=== PATIENT | male | born 1975 | race Caucasian/White ===

== ENCOUNTER 2020-04-18 16:35 | Outpatient (CLI) | payer BC, SELFPAY ==
--- NOTE | ~2020-04-18 | XR_ITS ---
EXAMINATION: XR chest 2V EXAM DATE: 04/18/2020 17:00 INDICATION: Left chest pain, numbness. Syncope. Shortness of breath. TECHNIQUE: Frontal and lateral projections of the chest obtained and reviewed. Comparison is made to prior examination from 06/20/2010. FINDINGS: Moderate chronic appearing hyperinflation. The lungs are clear. There are no pleural effu sions. The cardiomediastinal silhouette is within normal limits. There is no pneumothorax suspected . The bones and soft tissues are unremarkable. IMPRESSION: 1. No acute cardiopulmonary findings. 2. Hyperinflation. Reviewed, dictated and finalized at location A. UMER AFFAIRS DIRECTOR
[2020-04-18 16:52] LABS: Add Urine Microscopic? NO; Appearance Urine Clear (Clear); Basophils Absolute Auto 0.04 K/mm3 (0.00-0.10); Basophils Percent Auto 0.8 % (0.0-1.0); Bilirubin Urine Negative (Negative); Blood Urine Negative (Negative); Color Urine Yellow (Yellow); Eosinophils Absolute Auto 0.15 K/mm3 (0.02-0.50); Glucose Urine UA Negative (Negative); Hematocrit 26.4 % (40.0-54.0); Hemoglobin 7.4 g/dL (14.0-18.0); Immature Granulocyte Absolute 0.01 K/mm3 (0.00-0.00); Immature Granulocyte Percent A 0.2 % (0.0-0.0); Ketones Urine Negative (Negative); Leukocyte Esterase Ur Negative (Negative); Lymphocytes Absolute Auto 1.91 K/mm3 (1.10-4.50); Lymphocytes Percent Auto 38.5 % (18.0-42.0); Mean Corpuscular Hemoglobin 18.6 pg (27.0-31.0); Mean Corpuscular Volume 66.3 fL (78.0-102.0); Monocytes Absolute Auto 0.44 K/mm3 (0.10-0.90); Monocytes Percent Auto 8.9 % (2.0-11.0); Neutrophils Absolute Auto 2.4 K/mm3 (1.7-7.2); Neutrophils Percent Auto 48.6 % (50.0-70.0); Nitrate Urine Negative (Negative); Platelet Count Result 435 K/mm3 (150-420); Protein Urine Negative (Negative); Red Blood Count 3.98 M/mm3 (4.70-6.10); Red Cell Distribution Width 20.8 % (11.6-14.4); Specific Grav Ur 1.025 (1.010-1.020); Urobilinogen Urine 0.2 mg/dL (0.2-1.0); pH Urine 5.5 (5.0-8.0)
[2020-04-18 17:36] LABS: Alanine Aminotransferase 21 U/L (16-63); Albumin Level 4.4 g/dL (3.4-5.0); Alkaline Phosphatase 37 U/L (46-116); Anion Gap 6 mmol/L (8-16); Aspartate Amino Transferase 17 U/L (15-37); Bilirubin,Total 0.2 mg/dL (0.00-1.00); Blood Urea Nitrogen 19 mg/dL (7-18); Calcium 8.8 mg/dL (8.5-10.1); Carbon Dioxide 30 mmol/L (21-32); Chloride 103 mmol/L (98-108); Estimated Glomerular Filt Rate > 60; Glucose 103 mg/dL (70-99); Osmolality Calculated 290 mOsm/kg (285-295); Potassium 4.2 mmol/L (3.5-5.1); Sodium 139 mmol/L (136-145); Thyroid Stimulating Hormone 1.46 uIU/mL (0.36-3.74); Total Protein 7.2 g/dL (6.4-8.2)
[2020-04-18 17:40] LABS: CRP < 0.2 mg/dL (0.0-0.9)
== END 2020-04-18 16:36 | disposition home or self-care (01) ==
LOC: CHSLAB 16:39
PROVIDERS: PCP Internal Medicine; Visit Provider Internal Medicine
DX: R20.0 Anesthesia of skin (principal); R51.9 Headache, unspecified
CPT/HCPCS: 36415; 71046; 80053; 81003; 83735; 84443; 85025; 86140

== ENCOUNTER 2020-04-19 14:19 | Outpatient (CLI) | payer BC, SELFPAY ==
--- NOTE | ~2020-04-19 | US_ITS ---
EXAMINATION: US carotid duplex BI EXAM DATE: 04/19/2020 14:45 INDICATION: L arm numbness, headache . TECHNIQUE: Grayscale, color and pulsed Doppler images of the cervical carotid arteries were obtained . The degree of vessel stenosis is placed in one of the following categories: normal, <50% stenosis, 50-69% stenosis, >=70% stenosis but less than near-occlusion, near-occlusion, or occlusion. Note that percent stenosis relative to normal distal artery lumen diameter is indirectly measured from velocit y measurements as described by Todd, et al. Radiology 2003; [id number]. There is no prior study fo r comparison. FINDINGS: RIGHT SIDE: Right common carotid artery peak systolic velocity (PSV in cm/s): 116 Right bulb/internal carotid artery peak systolic velocity (PSV in cm/s): 97 Right internal carotid artery end diastolic velocity (EDV in cm/s): 29 Right ICA/CCA peak systolic ratio: 0.8 Right external carotid artery peak systolic velocity (PSV in cm/s): 100 Right vertebral artery antegrade flow: yes There is no focal plaque identified. LEFT SIDE: Left common carotid artery peak systolic velocity (PSV in cm/s): 103 Left bulb/internal carotid artery peak systolic velocity (PSV in cm/s): 82 Left internal carotid artery end diastolic velocity (EDV in cm/s): 29 Left ICA/CCA peak systolic ratio: 0.8 Left external carotid artery peak systolic velocity (PSV in cm/s): 92 Left vertebral artery antegrade flow: yes There is minimal carotid atherosclerosis. Velocity and Doppler waveforms in the common and internal carotid arteries is normal. IMPRESSION: 1. Normal right internal carotid artery. 2. Less than 50 percent stenosis in the left internal carotid artery. Reviewed, dictated and finalized at location A. 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
== END 2020-04-19 14:20 | disposition home or self-care (01) ==
LOC: CHSIMG 14:19
PROVIDERS: PCP Internal Medicine; Visit Provider Internal Medicine
DX: R51.9 Headache, unspecified (principal); R20.0 Anesthesia of skin
CPT/HCPCS: 93880

== ENCOUNTER 2020-04-25 13:51 | Outpatient (CLI) | payer BC, SELFPAY ==
--- NOTE | 2020-04-25 14:20 | ECHO_ITS ---
Patient Info Name: Jai Mckeon Age: 44 years : 1975 Gender: Male Ht: 74 in Wt: 160 lbs BSA: 1.94 m2 HR: 87 bpm BP: 100 / 57 mmHg Heart Rhythm: Sinus Rhythm Technical Quality: Excellent Exam Date: 04/25/2020 2:02 PM Exam Location: [facility] EM[facility] Patient Status: Outpatient Admit Date: 04/25/2020 Staff Ordering Physician: Sg Chappell MD Coldfusion: Ashly Henriquez RDCS Attending Provider: Sg Chappell MD Exam Type: CA echo doppler color flow Study Info Indications R55 - Syncope and collapse Complete two-dimensional, color flow and Doppler transthoracic echocardiogram is performed. Strain analysis performed. History/Risk Factors Hypertension: No Dyslipidemia: No Congenital Heart Disease (CHD): No Peripheral Arterial Disease (PAD): No Myocardial Infarction (IN): No Chronic Lung Disease: No Obesity: No Renal Disease: No Coronary Artery Disease (CAD) No Congestive Heart Failure (CHF): No Cardiomyopathy/LV Systolic Dysfunction: No Diabetes Mellitus: No COPD: No Tobacco Use: Former Cerebrovascular Disease: No Deep Vein Thrombosis (DVT): None Dialysis: None Frailty Scale (CSHA): 1: Very Fit Cardiac Arrest: No Summary 1. Complete two-dimensional, color flow and Doppler transthoracic echocardiogram is performed. 2. Left ventricular chamber dimension is mildly enlarged. 3. Left ventricular systolic function is normal, estimated at 60-65%. 4. The left ventricular diastolic function is normal. 5. E/e' 8 is minimally elevated. 6. Global longitudinal strain is normal at -22.5%. 7. There is mild mitral valve regurgitation. 8. No pulmonary hypertension, estimated pulmonary arterial systolic pressure is 24 mmHg. Left Ventricle E/e' 8 is minimally elevated. Global longitudinal strain is normal at -22.5%. Left ventricular chamber dimension is mildly enlarged. Left ventricular systolic function is normal, estimated at 60-65%. The left ventricular diastolic function is normal. Right Ventricle Right ventricular chamber dimension is normal. Right ventricular systolic function is normal. Left Atria Left atrial chamber dimension is normal. Right Atria Right atrial chamber dimension is normal. Aortic Valve The aortic valve is trileaflet. There is no aortic valve stenosis. There is no aortic valve regurgitation. Pulmonic Valve There is no pulmonic regurgitation. Mitral Valve There is no mitral valve stenosis. There is mild mitral valve regurgitation. Tricuspid Valve There is no tricuspid valve regurgitation. No pulmonary hypertension, estimated pulmonary arterial systolic pressure is 24 mmHg. Pericardium/Pleural There is no pericardial effusion. Inferior Vena Cava Normal inferior vena cava with >50% collapse upon inspiration consistent with normal right atrial pressure, 5 mmHg. Aorta The aortic root size at the sinus of Valsalva is normal. Left Ventricular Outflow Tract Name Value Normal LVOT 2D LVOT Diameter 2.0 cm Mitral Valve Name Value Normal
== END 2020-04-25 13:52 | disposition home or self-care (01) ==
PROVIDERS: PCP Internal Medicine; Visit Provider Internal Medicine
DX: D64.9 Anemia, unspecified (principal); R55 Syncope and collapse
CPT/HCPCS: 93306; 96365; 96366; J1756; J7050

== ENCOUNTER 2020-05-02 15:17 | Outpatient (CLI) | payer BC, SELFPAY ==
[2020-05-02] MEDS: IRON SUCROSE COMPLEX 250 MG in SODIUM CHLORIDE 0.9% IV 250 ML 125 MG IVPB (16:40)
--- NOTE | 2020-05-02 16:44 | PC.NURSE ---
Patient placed in room 202. #22 gauge IV started in left forearm. IV flushed with normal saline. Infusion started.
--- NOTE | 2020-05-02 17:37 | PC.NURSE ---
Patient in recliiner watching TV. No s/s of reaction to medication.IV site intact.
--- NOTE | 2020-05-02 18:35 | PC.NURSE ---
IV infusion complete. Patient tolerated well. IV site removed, tip intact. Dressing applied. Pt. left ambulatory. Next appt for friday05-09-20. Denies any questions at discharge.
== END 2020-05-02 15:18 | disposition home or self-care (01) ==
LOC: CHSTREATRM 15:20
PROVIDERS: PCP Internal Medicine; Visit Provider Internal Medicine
DX: D64.9 Anemia, unspecified (principal)
CPT/HCPCS: 96365; 96366; J1756; J7050

== ENCOUNTER 2020-05-06 07:34 | Outpatient (CLI) | payer BC, SELFPAY ==
--- NOTE | ~2020-05-06 | MR_ITS ---
EXAMINATION: MR brain IAC wo con DATE: 05/06/2020 08:29 INDICATION: Syncope. TECHNIQUE: Magnetic resonance imaging (MRI) of the brain, brainstem, and internal auditory canals was performed without intravenous contrast. Sequences included sagittal and axial T1-weighted FSE, axial diffusion-weighted FS EPI, axial T2*-weighted GRE, axial T2-weighted FLAIR Propeller, and axial T2-w eighted Propeller. Apparent diffusion coefficient (ADC) maps were created. COMPARISON: None. FINDINGS: There is no intracranial hemorrhage, acute infarction, or abnormal intracranial mass lesion . The ventricles are normal in size. The paranasal sinuses are clear. The orbits are normal. The inte rnal auditory canals and inner and middle ears are normal. The mastoid air cells are normal. IMPRESSION: 1. Normal brain. Reviewed, dictated and finalized at location B. ESTATE PHOTOGRAPHER IMPRESSION: 1. Normal brain.
== END 2020-05-06 07:35 | disposition home or self-care (01) ==
LOC: CHSIMG 07:36
PROVIDERS: PCP Internal Medicine; Visit Provider Internal Medicine
DX: R55 Syncope and collapse (principal); R20.2 Paresthesia of skin
CPT/HCPCS: 70551

== ENCOUNTER 2020-05-09 15:22 | Outpatient (CLI) | payer BC, SELFPAY ==
[2020-05-09] MEDS: IRON SUCROSE COMPLEX 250 MG in SODIUM CHLORIDE 0.9% IV 250 ML 125 MG IVPB (16:46)
== END 2020-05-09 15:23 | disposition home or self-care (01) ==
PROVIDERS: PCP Internal Medicine; Visit Provider Internal Medicine
DX: D64.9 Anemia, unspecified (principal)
CPT/HCPCS: 96365; 96366; J1756; J7050

== ENCOUNTER 2020-05-16 15:17 | Outpatient (CLI) | payer BC, SELFPAY ==
[2020-05-16] MEDS: IRON SUCROSE COMPLEX 250 MG in SODIUM CHLORIDE 0.9% IV 250 ML 125 MG IVPB (16:12)
--- NOTE | 2020-05-16 16:18 | PC.NURSE ---
Patient arrived on unit. Alert and oriented x3. IV started in left AC. IV infusion started. No c/o offered.
--- NOTE | 2020-05-16 18:55 | PC.NURSE ---
Patient's IV infused without difficulty. IV d/c'd. Patient instructed on IV site care.
== END 2020-05-16 15:18 | disposition home or self-care (01) ==
LOC: CHSTREATRM 15:18
PROVIDERS: PCP Internal Medicine; Visit Provider Internal Medicine
DX: D64.9 Anemia, unspecified (principal)
CPT/HCPCS: 96365; 96366; J1756; J7050

== ENCOUNTER 2020-05-19 15:56 | Outpatient (CLI) | payer BC, SELFPAY ==
[2020-05-19 16:19] LABS: Hematocrit 36.1 % (40.0-54.0); Hemoglobin 10.5 g/dL (14.0-18.0); Immature Reticulocyte Fraction 8.7 % (2.0-16.52); Reticulocyte Percent 0.88 % (0.50-1.50); Reticulocytes Absolute 0.04 M/mm3 (0.02-0.1)
== END 2020-05-19 15:57 | disposition home or self-care (01) ==
LOC: CHSLAB 15:57
PROVIDERS: PCP Internal Medicine; Visit Provider Internal Medicine
DX: D64.9 Anemia, unspecified (principal)
CPT/HCPCS: 36415; 85014; 85018; 85046

== ENCOUNTER 2020-06-06 15:46 | Outpatient (CLI) | payer BC, SELFPAY ==
[2020-06-06 15:56] LABS: Basophils Absolute Auto 0.06 K/mm3 (0.00-0.10); Eosinophils Absolute Auto 0.27 K/mm3 (0.02-0.50); Eosinophils Percent Auto 4.5 % (1.0-6.0); Hematocrit 37.8 % (40.0-54.0); Hemoglobin 11.4 g/dL (14.0-18.0); Immature Granulocyte Absolute 0.02 K/mm3 (0.00-0.00); Immature Granulocyte Percent A 0.3 % (0.0-0.0); Lymphocytes Absolute Auto 1.91 K/mm3 (1.10-4.50); Lymphocytes Percent Auto 31.7 % (18.0-42.0); Mean Corpuscular HGB Conc 30.2 g/dL (32.0-36.0); Mean Corpuscular Hemoglobin 22.8 pg (27.0-31.0); Mean Corpuscular Volume 75.8 fL (78.0-102.0); Mean Platelet Volume 8.5 fl (8.7-11.0); Monocytes Absolute Auto 0.43 K/mm3 (0.10-0.90); Monocytes Percent Auto 7.1 % (2.0-11.0); Neutrophils Absolute Auto 3.3 K/mm3 (1.7-7.2); Neutrophils Percent Auto 55.4 % (50.0-70.0); Platelet Count Result 347 K/mm3 (150-420); Red Blood Count 4.99 M/mm3 (4.70-6.10); Reticulocyte Hemoglobin Conten 29.7 pg (28.0-35.0); Reticulocyte Percent 1.05 % (0.50-1.50); Reticulocytes Absolute 0.05 M/mm3 (0.02-0.1)
[2020-06-06 16:46] LABS: Ferritin 41 ng/mL (26-388)
[2020-06-09 22:21] LABS: Tissue Transglutaminase IgA Ab 1 U/mL (<4); Tissue Transglutaminase IgG Ab 1 U/mL (<6)
== END 2020-06-06 15:47 | disposition home or self-care (01) ==
LOC: CHSLAB 15:48
PROVIDERS: PCP Internal Medicine; Visit Provider Internal Medicine
DX: D50.9 Iron deficiency anemia, unspecified (principal)
CPT/HCPCS: 36415; 82728; 83516; 85025; 85046; 88321

== ENCOUNTER 2020-07-24 10:38 | Outpatient (CLI) | payer BC, SELFPAY ==
--- NOTE | ~2020-07-24 | XR_ITS ---
XR lumbar spine 2-3V DATE: 07/24/2020 11:00 INDICATION: Back pain TECHNIQUE: AP, lateral, coned lateral lumbosacral views COMPARISON: None FINDINGS: Normal alignment of the lumbar spine. No fracture or bone destruction is evident. The lumba r pedicles are intact. No spondylolisthesis. There is moderately severe degenerative disc disease at L1-2. There is severe degenerative disease at L5-S1. The sacroiliac joints appear normal. IMPRESSION: Moderately severe degenerative disc disease at L1-2 and severe degenerative disc disease at L5-S1 Reviewed, dictated and finalized at location A. LE CLEANER IMPRESSION: Moderately severe degenerative disc disease at L1-2 and severe dege nerative disc disease at L5-S1
[2020-07-24 10:54] LABS: Basophils Absolute Auto 0.06 K/mm3 (0.00-0.10); Eosinophils Absolute Auto 0.23 K/mm3 (0.02-0.50); Eosinophils Percent Auto 3.9 % (1.0-6.0); Hematocrit 37.6 % (40.0-54.0); Immature Granulocyte Absolute 0.01 K/mm3 (0.00-0.00); Immature Granulocyte Percent A 0.2 % (0.0-0.0); Lymphocytes Absolute Auto 1.53 K/mm3 (1.10-4.50); Lymphocytes Percent Auto 25.8 % (18.0-42.0); Mean Corpuscular HGB Conc 31.9 g/dL (32.0-36.0); Mean Corpuscular Hemoglobin 25.1 pg (27.0-31.0); Mean Corpuscular Volume 78.5 fL (78.0-102.0); Mean Platelet Volume 8.2 fl (8.7-11.0); Monocytes Absolute Auto 0.42 K/mm3 (0.10-0.90); Monocytes Percent Auto 7.1 % (2.0-11.0); Neutrophils Absolute Auto 3.7 K/mm3 (1.7-7.2); Platelet Count Result 381 K/mm3 (150-420); Red Blood Count 4.79 M/mm3 (4.70-6.10); Red Cell Distribution Width 22.2 % (11.6-14.4); Reticulocyte Hemoglobin Conten 34.9 pg (28.0-35.0); Reticulocyte Percent 0.84 % (0.50-1.50); Reticulocytes Absolute 0.04 M/mm3 (0.02-0.1); White Blood Count 5.9 K/mm3 (4.8-10.8)
[2020-07-24 11:48] LABS: Ferritin 43 ng/mL (26-388)
== END 2020-07-24 10:39 | disposition home or self-care (01) ==
LOC: CHSLAB 10:41
PROVIDERS: PCP Internal Medicine; Visit Provider Internal Medicine
DX: D50.9 Iron deficiency anemia, unspecified (principal); M54.9 Dorsalgia, unspecified
CPT/HCPCS: 36415; 72100; 82728; 85025; 85046

== ENCOUNTER 2022-12-24 16:34 | Outpatient (CLI) | payer BC, SELFPAY ==
--- NOTE | ~2022-12-24 | XR_ITS ---
XR elbow LT min 3V 12/24/2022 17:05 INDICATION: Left elbow pain for 4 weeks PROCEDURE: 4 views left elbow COMPARISON: No prior studies for comparison. FINDINGS: Fracture, dislocation or subluxation is not identified. The soft tissues appear within norm al limits. No foreign bodies are identified. IMPRESSION: 1: NO ACUTE BONE OR JOINT ABNORMALITY IDENTIFIED. Reviewed, dictated and finalized at location A.
== END 2022-12-24 16:35 | disposition home or self-care (01) ==
PROVIDERS: PCP Internal Medicine; Visit Provider Internal Medicine
DX: M25.522 Pain in left elbow (principal)
CPT/HCPCS: 73080

== ENCOUNTER 2023-01-03 16:28 | Outpatient (RCR) | payer BC, SELFPAY ==
--- NOTE | 2023-01-07 17:53 | PTOPEVAL1 ---
Assessment and note entered by JANET Hopkins PT Evaluation Information Assessment Status Evaluation Diagnosis L elbow pain Onset 12/31/22 Subjective Information Patient reports L elbow pain that has been present for the last year, but has recently flared up. Pain increased with activities such as gripping items and lifting with hand facing downward, noting pain is typically worse in the mornings upon waking. He notes he is tender to the touch around the outside of the elbow. He has received x -rays from his doctor, showing negative results. A few months ago he had a cortisone shot which helped initially, but after awhile the pain came back and was more intense than previously. Patient notes numbness and tingling that occurs occasionally from the L elbow distally to hand. He reports a history of L shoulder impingement. At home he has been treating the pain with stretching , NSAIDs, and wearing a compression brace. 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 Reported Pain Level Pain Score 2: Self Report Assessment PT Clinical Summary Mr. Mckeon is a 47 y/o male who presents to skilled PT to address L elbow pain. He presents with palpable pain in L lateral epicondyle and extensor tendon. Patient demonstrates limitations in L UE strength, reporting pain with resisted elbow extension and wrist extension. Assessment suggests diagnosis of L lateral epicondylitis. 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 Pt would benefit from skilled PT to address pain, strength, and function to return to prior level of function. Supervised by Benjamín Hopkins DPT Plan of Care Interventions Electrical Stimulation,Hot Pack/Cold Pack,Manual Therapy,Neuro Re-education,Patient/Caregiver Educati,Therapeutic Activities,Therapeutic Exercise,Ultrasound,Other Other Interventions dry needling PT Services Indicated Yes Treatment Frequency and 2x/week for 10 visits Duration These treatments will address the objective and functional deficits as defined above. The patient will be advanced safely and appropriately in order for the patient to p
--- NOTE | 2023-01-07 17:54 | OPREHPOC ---
Outpatient Therapy Plan of Care This is a Multidisciplinary Plan of Care that may contain components documented by all disciplines (PT, OT, and ST.) PT Problem 1 PT Problem #1 Knowledge Deficit PT Goal 1 Goal 1. Pt to demonstrate independence with HEP to improve progress made in PT. Target Visit 5 PT Problem 2 PT Problem #2 Pain PT Goal 1 Goal 1. Patient to report no more than 3/10 pain with lifting 30 pounds to improve ability to perform work duties. Target Visit 10 PT Problem 3 PT Problem #3 Impaired Strength PT Goal 1 Goal 1. Patient to improve L shoulder strength to be 5/ 5 overall to imrpove patient's ability to perform yardwork. 2. Patient to improve L elbow and wrist strength to be 5/5 overall to allow patient open a jar. Target Visit 10 PT Problem 4 PT Problem #4 Impaired Functional Mobil PT Goal 1 Goal 1. Patient to report ability to lift tools with L UE to aid in work activities. 2. Patient to improve Quick DASH score to no more than 20% functional decline to improve ability to practice martial arts. Target Visit 10
--- NOTE | 2023-02-05 07:30 | OPREHPOC ---
Outpatient Therapy Plan of Care This is a Multidisciplinary Plan of Care that may contain components documented by all disciplines (PT, OT, and ST.) PT Problem 1 PT Problem #1 Knowledge Deficit PT Goal 1 Goal 1. Pt to demonstrate independence with HEP to improve progress made in PT. Target Visit 5 Progress Met Comment goal met PT Problem 2 PT Problem #2 Pain PT Goal 1 Goal 1. Patient to report no more than 3/10 pain with lifting 30 pounds to improve ability to perform work duties. Target Visit 10 Progress Not Met Comment continue to address PT Problem 3 PT Problem #3 Impaired Strength PT Goal 1 Goal 1. Patient to improve L shoulder strength to be 5/ 5 overall to imrpove patient's ability to perform yardwork. 2. Patient to improve L elbow and wrist strength to be 5/5 overall to allow patient open a jar. Target Visit 10 Progress Partially Met Comment continue to address PT Problem 4 PT Problem #4 Impaired Functional Mobil PT Goal 1 Goal 1. Patient to report ability to lift tools with L UE to aid in work activities. 2. Patient to improve Quick DASH score to no more than 20% functional decline to improve ability to practice martial arts. Target Visit 10 Progress Partially Met Comment continue to address
--- NOTE | 2023-02-05 07:31 | PTOPREEVAL ---
Assessment and note entered by JT File, PT Evaluation Information Assessment Status Re-evaluation Diagnosis L elbow pain Onset 12/31/22 Subjective Information Patient reports that he has less pain at rest in the L elbow than before starting PT. He additionally notes less tenderness along the L elbow. He states that activities with lifting and work duties still irritate the elbow and upper arm /shoulder. Reported Pain Level Pain Score 0: Self Report Assessment PT Clinical Summary Mr. Mckeon has attended 10 sessions of skilled PT making progress towards goals. 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 Patient reports improved pain levels at rest and less tenderness present. however, he notes that pain still reaches 6-7/10 with certain lifting activities he performs at home and work. Patient currently has 43% functional decline as assessed by the Quick DASH, improving from 55% functional decline at the initial assessment. Patient would benefit from continued skilled therapy to address remaining strength deficits and pain with function to allow for him to return to all activities and work duties with less difficultly/discomfort. Plan of Care Interventions Electrical Stimulation,Hot Pack/Cold Pack,Manual Therapy,Neuro Re-education,Patient/Caregiver Educati,Therapeutic Activities,Therapeutic Exercise,Ultrasound,Other Other Interventions dry needling PT Services Indicated Yes Treatment Frequency and continue POC for 2x/week for additional 6 visits Duration These treatments will address the objective and functional deficits as defined above. The patient will be advanced safely and appropriately in order for the patient to progress towards his/her prior level of function. Additional exercises will be introduced and as well as a comprehensive home exercise program upon discharge, if needed, ?to ensure carryover of functional gains achieved in the clinic. This treatment plan has been reviewed and agreement upon by the patient.
--- NOTE | 2023-02-28 17:40 | PTOPDC ---
Assessment and note entered by JT File, PT Evaluation Information Assessment Status Discharge Diagnosis L elbow pain Onset 12/31/22 Subjective Information patient reports he is good today. he reports he is ready to DC, but is curious about progression back to his weight lifting activities. he report she is much better since beginning skilled PT. 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 he has met all goals, except for his quick dash score. he will DC skilled PT today, and return to recreational activities with a slow progression in resistance/ weights for weight lifting. he was informed to reach out if symptoms begin to progress again. Plan of Care PT Services Indicated Yes
== END 2023-02-28 14:27 | disposition home or self-care (01) ==
LOC: CHSPT 16:28
PROVIDERS: PCP Internal Medicine; Visit Provider Internal Medicine
DX: M25.522 Pain in left elbow (principal)
CPT/HCPCS: 20560; 97032; 97035; 97110; 97140; 97150; 97161

== ENCOUNTER 2023-04-01 10:18 | Outpatient (CLI) | payer BC, SELFPAY ==
--- NOTE | ~2023-04-01 | XR_ITS ---
XR wrist LT min 3V DATE: 04/01/2023 11:01 INDICATION: Left lateral wrist pain ; No known injury TECHNIQUE: 4 views COMPARISON: None FINDINGS: There is likely osteoarthritic narrowing at the radiocarpal and scapholunate joints. No fracture or dislocation, periosteal reaction or bone destruction, erosive change or chondrocalcino sis is detected. 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
--- NOTE | ~2023-04-01 | XR_ITS ---
XR shoulder LT min 2V DATE: 04/01/2023 11:01 INDICATION: Generalized left shoulder pain, limited range of motion. No known injury. TECHNIQUE: 4 views COMPARISON: None FINDINGS: There is mild upper thoracic levoscoliosis. No fracture or dislocation, periosteal reaction or bone destruction or abnormal soft tissue calcifica tion of the left shoulder. IMPRESSION: Negative left shoulder Upper thoracic levoscoliosis Reviewed, dictated and finalized at location L.
--- NOTE | ~2023-04-01 | XR_ITS ---
XR_CERV2-3V_CR DATE: 04/01/2023 11:01 INDICATION: Neck pain radiating down left arm. No known injury. TECHNIQUE: AP, open-mouth and lateral views COMPARISON: None FINDINGS: There is straightening of the cervical spine which may be due to muscle spasm. C1 and C2 are normally aligned and the odontoid process is intact. No fracture or dislocation or lock ed facet or prevertebral soft tissue swelling is detected. There is mild anterior spurring at C4-5 and slight anterior subluxation. Moderate loss of disc space height and anterior and posterior spurring at C6-7. Uncovertebral joint spurring at C5-6 and C6-7. IMPRESSION: Straightening of the cervical spine which may be due to muscle spasm Minimal anterolisthesis and mild degenerative disc disease at C4-5 Moderate degenerative disc disease at C6-7 Reviewed, dictated and finalized at Location A. Reviewed, dictated and finalized at location L. IMPRESSION: Straightening of the cervical spine which may be due to muscle spas m Minimal anterolisthesis and mild degenerative disc disease at C4-5 Moderate degenerative disc disease at C6-7
== END 2023-04-01 10:19 | disposition home or self-care (01) ==
LOC: CHSIMG 10:23
PROVIDERS: PCP Internal Medicine; Visit Provider Internal Medicine
DX: M54.16 Radiculopathy, lumbar region (principal); M25.512 Pain in left shoulder; M25.532 Pain in left wrist; M19.032 Primary osteoarthritis, left wrist; M41.84 Other forms of scoliosis, thoracic region; M53.82 Other specified dorsopathies, cervical region; M50.321 Other cervical disc degeneration at C4-C5 level; M50.323 Other cervical disc degeneration at C6-C7 level
CPT/HCPCS: 72040; 73030; 73110

== ENCOUNTER 2023-05-16 13:11 | Outpatient (CLI) | payer BC, SELFPAY ==
--- NOTE | ~2023-05-16 | XR_ITS ---
Left wrist Technique: PA, oblique, lateral, and ulnar deviation views were obtained. Clinical History: Pain Findings: No acute fracture or dislocation is seen. Osseous alignment is anatomic. Joint spaces are p reserved. Soft tissues are unremarkable. Impression: Unremarkable left wrist radiographs. Reviewed, dictated and finalized at location . CHECKER Impression: Unremarkable left wrist radiographs.
[2023-05-16 15:02] LABS: Strep Group A RT-PCR NOT DETECTED (Negative)
[2023-05-16 16:21] LABS: Influenza A QL RT-PCR Negative (Negative); Influenza B QL RT-PCR Negative (Negative); RSV RNA, RT-PCR Positive (Negative); SARS-CoV-2 RNA PCR Negative (Negative)
== END 2023-05-16 13:12 | disposition home or self-care (01) ==
PROVIDERS: Nurse Practitioner Family; PCP Family Medicine; Visit Provider Family Medicine
DX: J06.9 Acute upper respiratory infection, unspecified (principal); S69.80XA Other specified injuries of unspecified wrist, hand and finger(s), initial encounter
CPT/HCPCS: 73110; 87635; 87637; 87651

== ENCOUNTER 2023-05-31 09:44 | Outpatient (CLI) | payer BC, SELFPAY ==
--- NOTE | ~2023-05-31 | MR_ITS ---
EXAMINATION: MR shoulder LT wo con DATE: 05/31/2023 10:19 INDICATION: Left shoulder pain. TECHNIQUE: Magnetic resonance imaging (MRI) of the left shoulder was performed without intravenous co ntrast. Sequences included axial PD-weighted FS FSE, coronal oblique PD-weighted FS FSE and T2-weight ed FS FSE, and sagittal oblique T2-weighted FS FSE and T1-weighted FSE. COMPARISON: Left shoulder radiographs 04/01/2023 FINDINGS: Coracoacromial arch: The acromion undersurface is curved in morphology (type II). The acromioclavicular joint is normal. T here is mild subacromial/subdeltoid bursitis. Rotator cuff: There is mild supraspinatus and infraspinatus tendinopathy. Teres minor tendon is normal. Subscapular is tendon is normal. Biceps tendon and glenoid labrum: Biceps tendon is in bicipital groove. Intra-articular biceps tendon is normal. The glenoid labrum is normal. Fluid: There is no glenohumeral joint effusion. Bones/cartilage: Glenoid cartilage is normal. There is a subchondral cyst of superior glenoid. Humeral head cartilage is normal. IMPRESSION: 1. Mild rotator cuff tendinopathy. No tear. 2. Mild subacromial/subdeltoid bursitis. Reviewed, dictated and finalized at location A. 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
== END 2023-05-31 09:45 | disposition home or self-care (01) ==
LOC: CHSIMG 09:45
PROVIDERS: PCP Family Medicine; Visit Provider Family Medicine
DX: M75.52 Bursitis of left shoulder (principal); M25.512 Pain in left shoulder; M77.8 Other enthesopathies, not elsewhere classified
CPT/HCPCS: 99199; 73221

== ENCOUNTER 2023-06-14 11:36 | Outpatient (CLI) | payer BC, SELFPAY ==
--- NOTE | ~2023-06-14 | MR_ITS ---
MRI of the left wrist Technique: Coronal T1 weighted and proton density fat sat images, and axial and sagittal proton-densi ty and proton-density fat-sat images were acquired. Clinical History: Lateral wrist pain Findings: Scapholunate ligament is intact, with no widening of the scapholunate interval. Lunotriquet ral ligament appears intact. TFCC appears grossly intact. There is probable mild degenerative change of the radiocarpal articulations and ulnar lunate articula tion. No joint effusion evident. There is marrow edema/cystic change in the trapezoid, possibly on a degenerative basis. Flexor tendons in the carpal tunnel are unremarkable. Extensor tendons are intact. Visualized muscula ture unremarkable. No soft tissue mass or fluid collection evident. IMPRESSION: Mild degenerative changes of the radiocarpal and ulna lunate articulations. Probable cystic change/marrow edema in the trapezoid, likely on a degenerative basis. Reviewed, dictated and finalized at [facility]. CTOR OF ALUMNI RELATIONS
== END 2023-06-14 11:37 | disposition home or self-care (01) ==
PROVIDERS: PCP Family Medicine; Visit Provider Family Medicine
DX: S69.82XA Other specified injuries of left wrist, hand and finger(s), initial encounter (principal)
CPT/HCPCS: 73221

== ENCOUNTER 2023-10-23 07:16 | Emergency (ER) | payer BC, SELFPAY ==
--- NOTE | ~2023-10-23 | CT_ITS ---
CT of the Abdomen and Pelvis: Indication: Abdominal pain Technique: 2.5 mm axial scans were obtained through the abdomen and pelvis following intravenous adm inistration of 100 cc of Omnipaque 350. Dose reduction technique was used on this scan by utilizing a utomated exposure control and iterative reconstruction technique. The dose-length product (DLP) was 3 55.08 mGy-cm. Findings: Scans through the lung bases are unremarkable. The liver, spleen, pancreas, gallbladder, adrenals and right kidney are within normal limits. 4 mm di stal left ureteral stone present, with mild left hydroureteronephrosis and mildly delayed left nephro gram. No evidence of aortic aneurysm. No lymphadenopathy. No bowel obstruction or bowel wall thickening. There is no evidence to suggest acute appendicitis. Images through the pelvis were performed. Urinary bladder unremarkable. No pelvic mass evident. No as cites. Impression: 4 mm distal left ureteral stone, with mild left hydroureteronephrosis, and mildly delayed left nephro gram. Reviewed, dictated and finalized at [facility]. Impression: 4 mm distal left ureteral stone, with mild left hydroureteronephrosis, and mild ly delayed left nephrogram.
[2023-10-23 07:18] VITALS: BP 114/82; PULSE 97; RESP 16; TEMP 36.9; O2SAT 99
[2023-10-23 07:28] LABS: Appearance Urine Clear (Clear); Bilirubin Urine Negative (Negative); Blood Urine Negative (Negative); Color Urine Light Yellow (Yellow); Glucose Urine UA Negative (Negative); Ketones Urine Trace (Negative); Leukocyte Esterase Ur Negative LEU/UL (Negative); Nitrate Urine Negative (Negative); Protein Urine Negative (Negative); Urobilinogen Urine 0.2 mg/dL (0.2-1.0)
[2023-10-23 07:30] LABS: Add Urine Microscopic? YES; RBC Urine None seen /hpf (0-2); WBC Urine None seen /hpf (0-3)
[2023-10-23 07:31] LABS: Bacteria Urine Rare /hpf
[2023-10-23 07:42] LABS: Basophils Absolute Auto 0.03 K/mm3 (0.00-0.10); Basophils Percent Auto 0.3 % (0.0-1.0); Eosinophils Absolute Auto 0.09 K/mm3 (0.02-0.50); Eosinophils Percent Auto 0.9 % (1.0-6.0); Hematocrit 41.1 % (40.0-54.0); Hemoglobin 13.8 g/dL (14.0-18.0); Immature Granulocyte Absolute 0.04 K/mm3 (0.00-0.00); Immature Granulocyte Percent A 0.4 % (0.0-0.0); Lymphocytes Absolute Auto 1.08 K/mm3 (1.10-4.50); Lymphocytes Percent Auto 11.3 % (18.0-42.0); Mean Corpuscular HGB Conc 33.6 g/dL (32-36); Mean Corpuscular Hemoglobin 29.4 pg (27.0-31.0); Mean Corpuscular Volume 87.6 fL (78.0-102.0); Mean Platelet Volume 8.4 fl (8.7-11.0); Monocytes Absolute Auto 0.82 K/mm3 (0.10-0.90); Monocytes Percent Auto 8.6 % (2.0-11.0); Neutrophils Absolute Auto 7.46 K/mm3 (1.70-7.20); Neutrophils Percent Auto 78.5 % (50.0-70.0); Platelet Count Result 239 K/mm3 (150-420); Red Blood Count 4.69 M/mm3 (4.70-6.10); Red Cell Distribution Width 12.8 % (11.6-14.4); White Blood Count 9.5 K/mm3 (4.8-10.8)
[2023-10-23] MEDS: KETOROLAC 30 MG/ML VIAL (*BKC) IV PUSH (07:46)
[2023-10-23] MEDS: ONDANSETRON INJ 4 MG/2 ML VIAL IV PUSH (07:46)
[2023-10-23] MEDS: SODIUM CHLORIDE 0.9% IV 1,000 ML 999 ML IV CONT (07:46)
[2023-10-23 07:59] LABS: Alanine Aminotransferase 26 U/L (16-63); Albumin Level 3.7 g/dL (3.4-5.0); Alkaline Phosphatase 38 U/L (46-116); Anion Gap 7 mmol/L (4-12); Aspartate Amino Transferase 27 U/L (15-37); Bilirubin,Total 0.7 mg/dL (0.00-1.00); Blood Urea Nitrogen 19 mg/dL (7-18); Calcium 8.3 mg/dL (8.5-10.1); Carbon Dioxide 31 mmol/L (21-32); Chloride 95 mmol/L (98-108); Estimated CRCL calculation 45 ml/min; Estimated Glomerular Filt Rate 35; Glucose 116 mg/dL (70-99); Osmolality Calculated 279 mOsm/kg (285-295); Potassium 3.7 mmol/L (3.5-5.1); Sodium 133 mmol/L (136-145); Total Protein 6.9 g/dL (6.4-8.2)
[2023-10-23 08:02] LABS: Lactic Acid Reflex 0.9 mmol/L (0.4-2.0)
[2023-10-23 08:17] LABS: Lipase 28 U/L (16-77)
[2023-10-23 08:25] LABS: INR 0.9; Partial Thromboplastin Time 28.5 Sec (23.9-30.70); Prothrombin Time 10.3 Seconds (9.50-12.1)
[2023-10-23 09:20] VITALS: BP 129/80; PULSE 78; RESP 16; TEMP 36.8; O2SAT 100
--- NOTE | 2023-10-23 09:20 | ED.BACK ---
HPI - Back Pain/Injury General Chief Complaint: Urogenital-Male Stated Complaint: abdominal pain Time Seen by Provider: 10/23/23 07:22 Source: patient and family Mode of arrival: ambulatory Limitations: no limitations History of Present Illness HPI Narrative: this is 40-year-old male that presents with some left flank pain radiating into his left groin with no dysuria no hematuria no fever chills. The patient was seen at another hospital ER was diagnosed with a kidney stone but is continuing to have left flank pain. patient had an episode of nausea and vomiting with no chest pain no shortness of breath. MD elicited complaint: back pain Pertinent past history: prior back pain Onset (ago): day(s) Timing: constant Severity: moderate Pain scale (0-10): 8 Quality: dull Location: left flank Related Data Home Medications Medication Instructions Recorded Confirmed hydrocodone 5 mg-acetaminophen 325 1 tablet PO Q6-8H 10/23/23 10/23/23 mg tablet ibuprofen 800 mg tablet 800 mg PO Q6-8H 10/23/23 10/23/23 ondansetron 4 mg disintegrating 4 mg PO Q6-8H 10/23/23 10/23/23 tablet tamsulosin 0.4 mg capsule 0.4 mg PO DAILY 10/23/23 10/23/23 Allergies Allergy/AdvReac Type Severity Reaction Status Date / Time Penicillins Allergy Unknown Unknown Verified 10/23/23 07:24 Review of Systems Review of Systems: All systems reviewed & are unremarkable except as noted in HPI and below PMFSH Past Medical History Medical History Non-recurrent bilateral inguinal hernia without obstruction or gangrene Prolapsed internal hemorrhoids, grade 2 Rectal bleeding Family History Family History Mother Family history of mental disorder Depression Family history of alcoholism Sibling Family history of migraine headaches Other Cerebrovascular accident Diabetes mellitus Family history of malignant neoplasm Social History Social History Smoking status: Former smoker Smoking end date: 06/02/13 Alcohol intake: current Exam Const: General: healthy appearing and no acute distress Nutritional Appearance: well nourished Orientation/consciousness: patient oriented x3 Neck: Neck: normal visual inspection and no lymphadenopathy Chest: Chest palpation & inspection: normal inspection of the chest Resp: Effort & Inspection: normal respiratory effort Auscultation: clear to auscultation bilaterally Cardio: Rate: regular rate Rhythm: regular rhythm GI: GI Palp: Yes Soft to palpation and Yes Tenderness to palpation present (GI) Auscultation: normal bowel sounds : General: Yes CVA tenderness Back/Spine/Pelvis: Back: CVA tenderness Skin: General skin exam: normal color Rashes: no rashes Neuro: General: patient oriented x3 Course Course Emergency Course: Patient had a CT scan of the abdomen pelvis performed which showed a 4 mean 4mm stone in the distal ureter with mild hydronephrosis, labs reviewed show that he has acute renal insufficiency patient did receive IV fluids and 30mg IV Toradol pain level did come down to a 5 but is crept up to a 7, and will administer 4mg IV morphine and will discharge patient with follow-up with his primary. Vital Signs Vital signs: Vital Signs Temperature 36.9 C 10/23/23 07:18 Pulse Rate 97 10/23/23 07:18 Respiratory Rate 16 10/23/23 07:18 Blood Pressure 114/82 10/23/23 07:18 Pulse Oximetry 99 10/23/23 07:18 Oxygen Delivery Room Air 10/23/23 07:18 Temperature 36.9 C 10/23/23 07:18 Pulse Rate 97 10/23/23 07:18 Respiratory Rate 16 10/23/23 07:18 Blood Pressure 114/82 10/23/23 07:18 Pulse Oximetry 99 10/23/23 07:18 Oxygen Delivery Room Air 10/23/23 07:18 MDM - Back Pain/Injury Lab Data 10/23/23 07:35 10/23/23 07:35 Labs: Lab Results
[2023-10-23] MEDS: MORPHINE SULFATE (*CRX) 4 MG/ML INJ IV PUSH (09:24)
== END 2023-10-23 09:30 | disposition home or self-care (01) ==
PROVIDERS: Emergency Provider Emergency Medicine; PCP Family Medicine
DX: N20.1 Calculus of ureter (principal)
CPT/HCPCS: 36415; 74177; 80053; 81001; 83605; 83690; 85025; 85610; 85730; 96361; 96374; 96375; 99284; J1885; J2270; J2405; J7030; Q9967

== ENCOUNTER 2023-12-03 12:47 | Outpatient (CLI) | payer BC, SELFPAY ==
--- NOTE | 2023-12-03 14:30 | NEURO_ITS ---
Impression: # Complains of left upper extremity pain. Not diabetic. # Normal Nerve Conduction Study. No Carpal Tunnel Syndrome or ulnar neuropathy. # Normal needle/EMG exam. # Clinical correlation recommended. Nerve Conduction Studies Anti Sensory Summary Table Stim Site NR Peak (ms) P-T Amp (?V) Site1 Site2 Delta-P (ms) Dist (cm) Rj (m/s) Left Median Anti Sensory (2-3nd Digit) Wrist 3.1 76.8 Wrist 2-3nd Digit 3.1 14.0 45 Wrist 3.0 69.8 Wrist 2-3nd Digit 3.1 14.0 45 Left Radial Anti Sensory (Base 1st Digit) Wrist 2.3 25.7 Wrist Base 1st Digit 2.3 0.0 Left Ulnar Anti Sensory (5th Digit) Wrist 2.7 84.6 Wrist 5th Digit 2.7 14.0 52 Motor Summary Table Stim Site NR Onset (ms) O-P Amp (mV) Site1 Site2 Delta-0 (ms) Dist (cm) Rj (m/s) Left Median Motor (Abd Poll Brev) Wrist 3.5 3.5 Elbow Wrist 5.6 31.0 55 Elbow 9.1 8.3 Left Ulnar Motor (Abd Dig Minimi) Wrist 2.7 9.5 A Elbow Wrist 5.6 32.0 57 A Elbow 8.3 6.0 F Wave Studies NR F-Lat (ms) L-R F-Lat (ms) Left Median (Mrkrs) (Abd Poll Brev) 31.87 Left Ulnar (Mrkrs) (Abd Dig Min) 30.86 EMG Side Muscle Nerve Root Ins Act Fibs Amp Dur Recrt Comment Left 1stDorInt Ulnar C8-T1 Nml Nml Nml Nml Nml Left Ext Indicis Radial (Post Int) C7-8 Nml Nml Nml Nml Nml Left Ext Digitorum Radial (Post Int) C7-8 Nml Nml Nml Nml Nml Left BrachioRad Radial C5-6 Nml Nml Nml Nml Nml Left PronatorTeres Median C6-7 Nml Nml Nml Nml Nml Left Abd Poll Brev Median C8-T1 Nml Nml Nml Nml Nml Left ABD Dig Min Ulnar C8-T1 Nml Nml Nml Nml Nml Left Biceps Musculocut C5-6 Nml Nml Nml Nml Nml Left Triceps Radial C6-7-8 Nml Nml Nml Nml Nml Left Deltoid Axillary C5-6 Nml Nml Nml Nml Nml MTDD
== END 2023-12-03 12:48 | disposition home or self-care (01) ==
LOC: ANHNEURO 12:48
PROVIDERS: PCP Family Medicine; Visit Provider Plastic Surgery
DX: M18.12 Unilateral primary osteoarthritis of first carpometacarpal joint, left hand (principal); M54.12 Radiculopathy, cervical region
CPT/HCPCS: 95886; 95909

== ENCOUNTER 2024-08-16 07:18 | Outpatient (CLI) | payer BC, SELFPAY ==
--- OUTSIDE RECORDS SUMMARY | 2024-08-16 07:28 | XMS_ITS | Encounter Summary ---
Author Organization [facility] Address 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
--- OUTSIDE RECORDS SUMMARY | 2024-08-16 07:28 | XMS_ITS | Encounter Summary ---
[facility] Organization [facility] Address 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
--- OUTSIDE RECORDS SUMMARY | 2024-08-16 07:28 | XMS_ITS | Encounter Summary ---
Author Organization [facility] Address 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
--- OUTSIDE RECORDS SUMMARY | 2024-08-16 07:28 | XMS_ITS | Encounter Summary ---
Author Organization [facility] Address [address] [place] [address] Care Team Providers Care Grinding Wheel Facer Name Role Phone Daquan Bullard MD Primary Care Provider Jairo dickerson Encounter Details Date Type Department Care Team (Late st Contact Info) Description 03/27/2000 Outpatient Historical [facility] Primary Care - [address] [address] Daquan Bullard MD NO ADDRESS ON FILE Social History Tobacco Use Types Packs/Day Years Used Date Smoking Tobacco: Never Assessed Sex and Gender Information Value Date Recorded Sex Assigned at Not on file Legal Sex Male 4:22 AM ACCOUNT SERVICES COORDINATOR Gender Identity Not on file Sexual Orientation Not on file documented as of this encounter Plan of Treatment Not on file documented as of this encounter Visit Diagnoses Not on filedocumented in this encounter Care Teams Grinding Wheel Facer Relationship Specialty Start Date End Date Daquan Bullard MD NO ADDRESS ON FILE PCP - General 01/25/00 06/08/18 documented as of this encounter
--- OUTSIDE RECORDS SUMMARY | 2024-08-16 07:29 | XMS_ITS | Clinical Summary ---
Author Organization [facility] Address [address], [address] [address] Phone Care Team Providers Care Cardiopulmonary Technician Name Role Phone Sg Chappell MD Primary Care Provider [phone] Allergies Active Allergy Reactions Criticality Noted Date Comments Penicillins Anaphylaxis High 04/14/2018 Medications fludrocortisone (FLORINEF) 0.1 MG TabletIndications :sometimes, takes bid Take 0.1 mg by mouth daily. Active Zinc 50 MG Capsule Take 50 mg by mouth daily. Active B Complex Vitamins (VITAMIN B COMPLEX PO) Take 1 Cap by mouth daily. Active Cholecalciferol (VITAMIN D PO) Take 1 Cap by mouth daily. Active magnesium oxide (MAG-OX) 400 MG Tablet Take 400 mg by mouth daily. Active Lactobacillus (ACIDOPHILUS PO) Take 2 Caps by mouth daily. Active Ginseng 100 MG Capsule Take 2 Caps by mouth daily. Active otherIndications: TUMERIC CIRCUMIN 500 mg by Other route daily. Active Multiple Vitamins-Minerals (MULTIVITAMIN PO) Take 1 Tab by mouth daily. Active raNITIdine (ZANTAC) 150 MG Tablet Take 150 mg by mouth 2 times daily. Active dicyclomine (BENTYL) 10 MG CapsuleIndication s:Iron deficiency anemia, unspecified iron deficiency anemia type,Intestinal malabsorption, unspecified type Take 1 Cap by mouth 3 times daily (before meals). 90 Cap 3 07/02/2019 Active Active Problems Problem Noted Date Diagnosed Date Irritable bowel syndrome wit h both constipation and diarrhea 12/29/2018 Hemorrhoids 12/29/2018 Iron deficiency anemia due to chronic blood loss 10/19/2018 Immunizations Immunization Administration Dates Next Due Influenza Vaccine greater than 3 yrs 03/24/2019 Family History Medical History Relation Name Comments Ulcerative Colitis Brother stomach u lcers Cancer Maternal Grandmother skin/br ain cancer No Known Problems Mother Ulcerative Colitis Other Cousin Cancer Paternal Grandmother Stroke Sister Relation Name Status Comments Brother Father Alive Maternal Grandmother Mother Alive Other Cousin Paternal Grandmother Sister Social History Tobacco Use Types Packs/Day Years Used Date Smoking Tobacco: Former Cigarettes 1 20 1 06/14/1991 - 04/14/2012 Smokeless Tobacco: Never Tobacco Cessation:Counseling Given: No Comments:quit Alcohol Use Standard Drinks/Week Comments Yes 0 (1 standard drink = 0.6 oz pur e alcohol) 2 x a month Sex and Gender Information Value Date Recorded Sex Assigned at Not on file Legal Sex Male 9:11 AM TELEVISION EQUIPMENT OPERATOR Gender Identity Not on file Sexual Orientation Not on file Occupation Industry Job Start Date Job End Date [employer] [address] Not on file Not on file Not on file Last Filed Vital Signs Vital Sign Reading Time Taken Comments Blood Pressure 116/82 07/08/2019 3:51 PM TELEVISION EQUIPMENT OPERATOR Pulse 78 07/08/2019 3:51 PM TELEVISION EQUIPMENT OPERATOR Temperature 36.3 C (97.3 F) 07/08/2019 3:51 PM TELEVISION EQUIPMENT OPERATOR Respiratory Rate 16 07/08/2019 3:51 PM TELEVISION EQUIPMENT OPERATOR Oxygen Saturation 98% 07/08/2019 3:51 PM TELEVISION EQUIPMENT OPERATOR Inhaled Oxygen Concentration - - Weight 75.3 kg (166 lb) 07/08/2019 3:51 PM TELEVISION EQUIPMENT OPERATOR Height 188 cm (6' 2 ) 07/08/2019 3:51 PM TELEVISION EQUIPMENT OPERATOR Body Mass Index 21.31 07/08/2019 3:51 PM TELEVISION EQUIPMENT OPERATOR Plan of Treatment Health Maintenance Due Date Last Done Comments Hepatitis C Virus (HCV) Screening 1975 Hepatitis B Immunization (1 of 3 - 19+ 3-dose series) 08/14/1994 Influenza Immunization (#1) 02/01/202403/03, 04/03/2018 SARS-COV-2 Immunization ( season) 2024 06/08/2021, 09/26/2020, 08/29/2020 Colonoscopy 06/08/2028 06/08/2018, 08/29/2016 Colorectal Cancer Screening 06/08/2028 Respiratory Syncytial Virus (RSV) Immunization (Adult) (1 - 1-dose 75+ series) 08/14/2050 06/08/2018, 08/29/2016 DTaP/Tdap/Td Immunization Discontinued 03/13/2011 TdaP Immunization Completed 03/13/2011 Meningococcal Immunization (ACWY) Aged Out No longer eligible based on patient's age to complete this topic Pneumococcal Immunization Combined Aged Out No longer eligible based on patient's age to complete this topic Rotavirus Immunization Aged Out No lo nger eligible based on patient's age to complete this topic Procedures Procedure Name Priority Date/Time Associated Diagnosis Comments COLONOSCOPY Routine 08/29/2016 from Last 3 Months or Most Recently Relevant to Health Maintenance Results * COLONOSCOPY (08/29/2016) Sumeet Diehl MD PROCEDURE/MINOR SURGICA L ORDERABLES Final Result from Last 3 Months or Most Recently Relevant to Health Maintenance Insurance [facility] Care Teams Cardiopulmonary Technician Relationship Specialty Start Date End Date Sg Chappell MD [address] [place] [address] PCP - General Internal Medicine 04/14/18
--- OUTSIDE RECORDS SUMMARY | 2024-08-16 07:29 | XMS_ITS | Clinical Summary ---
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
--- OUTSIDE RECORDS SUMMARY | 2024-08-16 07:29 | XMS_ITS | Clinical Summary ---
Author Organization [facility] Address [address] [place] [id number] Care Team Providers Care Shift Superintendent Caustic Cresylate Name Role Phone Sg Chappell MD Primary Care Provider [phone] Social History Tobacco Use Types Packs/Day Years Used Date Smoking Tobacco: Never Assessed Sex and Gender Information Value Date Recorded Sex Assigned at Not on file Legal Sex Male 4:53 PM SYSTEM SAFETY ENGINEER Gender Identity Not on file Sexual Orientation Not on file Plan of Treatment Health Maintenance Due Date Last Done Comments Colorectal Cancer Screening Colonoscopy (10 Years) 1975 Annual Physical 08/14/1978 Hepatitis C 08/14/1993 DTaP, Tdap and Td Vaccines ( 1 - Tdap) 08/14/1994 Hepatitis B Vaccines (1 of 3 - 19+ 3-dose series) 08/14/1994 COVID-19 Vaccine (2023-2 5 season) 2024 Influenza Adult (#1) 2024 Meningococcal B Vaccine Aged Out No l onger eligible based on patient's age to complete this topic Meningococcal Vaccine Aged Out No richardson prosper eligible based on patient's age to complete this topic Pneumococcal Vaccine: Pediat rics (0 to 5 Years) and At-Risk Patients (6 to 64 Years) Aged Out No longer eligible b ased on patient's age to complete this topic RSV Immunizations Under 20 Months Aged Out No longer eligible based on patient's age to complete this topic Insurance [facility] Care Teams Shift Superintendent Caustic Cresylate Relationship Specialty Start Date End Date Sg Chappell MD [address] [place] [address] PCP - General INTERNAL MEDICINE 04/07/23
== END 2024-08-16 07:19 | disposition home or self-care (01) ==
PROVIDERS: PCP Family Medicine; Visit Provider Family Medicine
DX: L20.9 Atopic dermatitis, unspecified (principal)
CPT/HCPCS: 36415; 84402; 84403